=== PATIENT | female | born 2000 | race Caucasian/White ===

== ENCOUNTER 2021-11-06 22:26 | Emergency (ER) | payer OTHER ==
--- NOTE | 2021-11-06 22:37 | ERPHSYRPT ---
- History of Present Illness Time Seen by Provider: 11/06/21 22:37 Source: patient Exam Limitations: no limitations Physician History: This is a 21-year-old female who states that she is nauseous at the thought of eating neither hotdogs or potatoes. She is convinced that she is . Her last menstrual period was the end of September. Patient denies chest pain. She denies shortness of breath she has no vaginal bleeding. She is here for the sole purpose of determining whether or not she is . He otherwise has no urgent or emergent symptoms. Timing/Duration: today Activites at Onset: none Onset Location: other Pain Radiation: none (No pain) Severity of Pain-Max: none Severity of Pain-Current: none Prior abdominal problems: none Sexual intercourse history: non-contributory Modifying Factors: Improves With: nothing Associated Symptoms: denies symptoms Travel Risk - International Travel Have you traveled outside of the country in past 3 weeks: No - Coronavirus Screening Are you exhibiting any of the following symptoms?: No Close contact with a COVID-19 positive Pt in past 14-21 Days: No - Review of Systems Constitutional: No Symptoms Eyes: No Symptoms Ears, Nose, & Throat: No Symptoms Respiratory: No Symptoms Cardiac: No Symptoms Abdominal/Gastrointestinal: No Symptoms Genitourinary Symptoms: No Symptoms Musculoskeletal: No Symptoms Skin: No Symptoms Neurological: No Symptoms Psychological: No Symptoms Endocrine: No Symptoms Hematologic/Lymphatic: No Symptoms Immunological/Allergic: No Symptoms All Other Systems: Reviewed and Negative - Past Medical History Pertinent Past Medical History: Yes - Nursing Vital Signs Nursing Vital Signs: Initial Vital Signs Temperature 97.8 F 11/06/21 22:34 Pulse Rate 70 11/06/21 22:34 Respiratory Rate 16 11/06/21 22:34 Blood Pressure 115/77 11/06/21 22:34 O2 Sat by Pulse Oximetry 99 11/06/21 22:34 Pain Scale Pain Intensity 0 - Physical Exam General Appearance: no apparent distress, alert, anxiety Eye Exam: PERRL/EOMI, eyes nml inspection Ears, Nose, Throat Exam: normal ENT inspection, moist mucous membranes Neck Exam: normal inspection, non-tender, supple, full range of motion Respiratory Exam: airway intact, No chest tenderness, No respiratory distress Gastrointestinal/Abdomen Exam: No tenderness Pelvic Exam: adnexal mass Rectal Exam: not done Back Exam: normal inspection, normal range of motion, No CVA tenderness, No vertebral tenderness Extremity Exam: normal inspection, normal range of motion, pelvis stable Neurologic Exam: alert, oriented x 3, cooperative, parliamentary librarian II-XII nml as tested, normal mood/affect, nml cerebellar function, nml station & gait, sensation nml Skin Exam: normal color, warm, dry Lymphatic Exam: No adenopathy SpO2 Interpretation: normal O2 Delivery: Room Air - Course Nursing assessment & vital signs reviewed: Yes Ordered Tests: Active Orders 24 hr Category Date Time Status HCG,QUALITATIVE URINE Stat Lab 11/06/21 22:42 Received - Progress Progress: unchanged Air Movement: good Progress Note: 11/06/21 23:11 This patient he is here today for the sole purpose of determine whether or not she is . She is completely asymptomatic. I educated the patient regarding use of emergency department simply to determine status. Patient was informed that being is not an emergency issue. She has no other symptoms. The concern she had was that she did not have a primary care physician. However, I did inform her that she can do an [id number] test or wait until she is seen by a primary care provider and have them perform this test as an outpatient. Blood Culture(s) Obtained: No Antibiotics given: No Counseled pt/family regarding: lab results, diagnosis, need for follow-up - Departure Departure Disposition: Home Clinical Impression: Well adult health check Condition: Stable Critical Care Time: No Additional Instructions: Follow-up with an outpatient primary care provider for further evaluation and management.
[2021-11-06 22:46] VITALS: BP 115/77; PULSE 70; O2SAT 99
== END 2021-11-06 23:44 | disposition home or self-care (01) ==
LOC: ED 22:26
DX: Z32.00 Encounter for pregnancy test, result unknown (principal)
CPT/HCPCS: 81025; 99282